=== PATIENT | female | born 1945 | race Caucasian/White ===

== ENCOUNTER → 2021-05-12 | Outpatient (CLI) | payer MEDICARE ==
[~2021-05-12] MED LIST: ASPIRIN325 PO; ASPIRIN81 M2 PO; BYSTOLIC; BYSTOLIC10 MG PO; DOCUSATE SODIU100 MG PO; DOXEPIN 10 MG C10 M1; DOXEPIN 25 MG C25 MG; DOXEPIN 50MG CA50 M1 PO; KRILL OIL 3001 EACH PO; METAMUCIL1 EAC1 PO; MILK OF MA2400 MG/10 PO; NORCO 5-325 TA1 EACH PO; OMEPRAZOLE; OXYCODONE HCL 55 MG PO; PRILOSEC 20 MG20 MG PO; PROZAC; PROZAC40 MG PO; XANAX 0.25 MG0.25 MG PO; XANAX 0.5 MG0.5 M1 PO; XARELTO10 MG PO; Xanax PO
== END ==
LOC: M.RAD 10:19
PROVIDERS: ATTEND Family Medicine
DX: Z12.31 Encounter for screening mammogram for malignant neoplasm of breast (principal)